=== PATIENT | male | born 1955 | race Caucasian/White ===

== ENCOUNTER 2022-03-12 06:38 | Observation (INO) | payer MEDICARE ==
[2022-03-12 07:03] LABS: #Basophils 0.1 10x3/uL (0.0-0.2); #Eosinphils 0.3 10x3/uL (0.0-0.5); #Monocytes 0.8 10x3/uL (0.0-1.1); #Neutrophils 4.3 10x3/uL (1.5-8.4); %Basophils 0.7 % (0.0-2.0); %Lymphocytes 27.5 % (18.0-47.0); %Monocytes 10.7 % (0.0-10.0); %Neutrophils 56.8 % (40.0-75.0); Hemoglobin 12.4 g/dL (13.5-17.5); Mean Corpuscular HGB CONC 32.5 g/dL (32.0-36.0); Mean Platelet Volume 9.5 fl (7.4-10.4); Platelet Count 267 10x3/uL (150-450); RBC Distribution Width 13.9 % (11.5-14.5); Red Blood Cell (RBC) Count 4.43 10x6/uL (4.32-5.72); White Blood Cell (WBC) Count 7.6 10x3/uL (3.5-10.5)
[2022-03-12] MEDS ORDERED: Aspirin Chewable 81 MG TAB ONE (07:17)
[2022-03-12 07:18] LABS: ALT (SGPT) 11 U/L (8-55); AST (SGOT) 14 U/L (5-34); Albumin 4.2 g/dL (3.4-4.8); Alkaline Phosphatase 33 U/L (40-110); Anion Gap 16 mmol/L (10-20); BUN (Urea Nitrogen) 29 mg/dL (8.4-25.7); Bilirubin, Total 0.3 mg/dL (0.2-1.2); CK (CPK) 88 U/L (30-200); Calc. Creatinine Clearance 0 mL/min (70-130); Calcium 9.4 mg/dL (7.8-10.44); Carbon Dioxide 24 mmol/L (23-31); Chloride 104 mmol/L (98-107); Globulin 3.1 g/dL (2.4-3.5); Glucose 105 mg/dL (80-115); Lipase 45 U/L (8-78); Potassium 4.5 mmol/L (3.5-5.1); Protein, Total 7.3 g/dL (5.8-8.1); Sodium 139 mmol/L (136-145)
[2022-03-12] MEDS ORDERED: Nitroglycerin 2% Ointment 1 INCH/1 GM Packet ONE (07:18)
[2022-03-12] MEDS ORDERED: Bisacodyl 5 MG TAB PO PRN (08:57)
[2022-03-12] MEDS ORDERED: Acetaminophen 325 MG TAB PO PRN (08:57)
[2022-03-12] MEDS ORDERED: Ondansetron ODT 4 MG TAB PO PRN (08:57)
[2022-03-12] MEDS ORDERED: HYDROcodone/Acetaminophen 5/325 mg Tablet PO PRN (08:57)
[2022-03-12] MEDS ORDERED: Ondansetron PF 4 MG/2 ML Vial IVP PRN (08:57)
[2022-03-12] MEDS ORDERED: Senokot S 8.6-50 MG TAB PO PRN (08:57)
[2022-03-12] MEDS ORDERED: Enoxaparin Sodium 30 MG/0.3 ML SYRINGE SC SCH (09:00)
[2022-03-12] MEDS: Famotidine 20 MG TAB PO SCH ×2 (10:00→20:39)
[2022-03-12 10:31] VITALS: BMI 35.2
[2022-03-12 10:35] LABS: Troponin I Less than 0.010 ng/mL (< 0.028)
[2022-03-12 13:12] LABS: Troponin I Less than 0.010 ng/mL (< 0.028)
[2022-03-12] MEDS ORDERED: Dextrose 5% in Water 1,000 ML IV PRN (13:16)
[2022-03-12] MEDS ORDERED: Dextrose 50% Abboject 50 ML SYRINGE SLOW IVP PRN (13:16)
[2022-03-12] MEDS ORDERED: Insulin Regular 300 UNITS/3 ML VIAL SC PRN ×2 (13:16)
[2022-03-12] MEDS ORDERED: Sodium Chloride 0.9% 1,000 ML IV SCH (14:30)
[2022-03-12 19:38] LABS: Hemoglobin A1c 6.1 % (4.0-6.0)
[2022-03-12] MEDS: Metoprolol Tartrate 25 MG TAB PO SCH (20:39)
[2022-03-12] MEDS ORDERED: Communication Order-Pharmacy FS SCH (21:00)
[2022-03-13 04:46] LABS: ALT (SGPT) 9 U/L (8-55); AST (SGOT) 11 U/L (5-34); Albumin 3.8 g/dL (3.4-4.8); Alkaline Phosphatase 30 U/L (40-110); Anion Gap 14 mmol/L (10-20); BUN (Urea Nitrogen) 24 mg/dL (8.4-25.7); Bilirubin, Total 0.3 mg/dL (0.2-1.2); Calc. Creatinine Clearance 91 mL/min (70-130); Calcium 8.8 mg/dL (7.8-10.44); Carbon Dioxide 25 mmol/L (23-31); Cardiac Risk 3.1 (Less than 4.5); Chloride 106 mmol/L (98-107); Cholesterol 122 mg/dl (< 200 Desired); Globulin 2.7 g/dL (2.4-3.5); Glucose 118 mg/dL (80-115); HDL Cholesterol 40 mg/dL (>60 Neg Risk); LDL Cholesterol, Calculated 63 mg/dL; Potassium 4.6 mmol/L (3.5-5.1); Protein, Total 6.5 g/dL (5.8-8.1); Sodium 140 mmol/L (136-145); Triglycerides 93 mg/dL (Less than 150)
[2022-03-13 04:53] LABS: #Eosinphils 0.3 10x3/uL (0.0-0.5); #Monocytes 0.7 10x3/uL (0.0-1.1); #Neutrophils 3.4 10x3/uL (1.5-8.4); %Basophils 0.7 % (0.0-2.0); %Eosinophils 4.3 % (0.0-6.0); %Lymphocytes 25.1 % (18.0-47.0); %Monocytes 11.5 % (0.0-10.0); %Neutrophils 58.2 % (40.0-75.0); Hemoglobin 11.1 g/dL (13.5-17.5); Mean Corpuscular HGB CONC 31.7 g/dL (32.0-36.0); Mean Corpuscular Hemoglobin 27.3 pg (27.0-33.0); Mean Corpuscular Volume 86.2 fl (81.2-95.1); Mean Platelet Volume 9.5 fl (7.4-10.4); Platelet Count 224 10x3/uL (150-450); RBC Distribution Width 13.7 % (11.5-14.5); Red Blood Cell (RBC) Count 4.06 10x6/uL (4.32-5.72); White Blood Cell (WBC) Count 5.8 10x3/uL (3.5-10.5)
[2022-03-13] MEDS ORDERED: Sodium Chloride 0.9% 1,000 ML IV SCH (06:00)
[2022-03-13] MEDS: Famotidine 20 MG TAB PO SCH (08:17)
[2022-03-13] MEDS: Metoprolol Tartrate 25 MG TAB PO SCH (08:18)
[2022-03-13] MEDS ORDERED: Pioglitazone HCl 15 MG TAB PO SCH (09:00)
[2022-03-13] MEDS ORDERED: Aspirin 81 mg Enteric Coated Tablet PO SCH (09:00)
[2022-03-13] MEDS ORDERED: Lisinopril 10 MG TAB PO SCH (09:00)
[2022-03-13] MEDS ORDERED: Hydrochlorothiazide 25 MG TAB PO SCH (09:00)
[2022-03-13] MEDS ORDERED: Iopamidol 300 61% 100 ML VIAL FS ONE (10:21)
[2022-03-13] MEDS ORDERED: Nitroglycerin 50 MG/250 ML BOT 0 ML ONE (12:06)
[2022-03-13] MEDS ORDERED: Heparin 10,000 UNITS/ 10 ML VIAL ONE ×2 (12:06→13:29)
[2022-03-13] MEDS ORDERED: Adenosine 6 MG/2 ML VIAL ONE (12:06)
[2022-03-13] MEDS ORDERED: Lidocaine 1% 20 ML MDV ONE (12:07)
[2022-03-13] MEDS ORDERED: Sodium Chloride 0.9% 1,000 ML ONE (12:07)
[2022-03-13] MEDS ORDERED: Midazolam HCl 5 mg/5 ml Vial ONE (12:27)
[2022-03-13] MEDS ORDERED: Fentanyl 100 MCG/2 ML VIAL ONE (12:28)
[2022-03-13] MEDS ORDERED: Protamine Sulfate 50 MG/5 ML VIAL ONE (13:36)
[2022-03-13] MEDS ORDERED: Acetaminophen/Codeine 30-300mg Tablet PO PRN ×2 (15:27)
[2022-03-13] MEDS ORDERED: Nitroglycerin 0.4 MG TAB (25 Tab Bottle) SL PRN (15:27)
[2022-03-13] MEDS ORDERED: Sodium Chloride 0.9% 200 ML IV PRN (15:27)
[2022-03-13 18:51] VITALS: BP 167/76; TEMP 97.7
[2022-03-13] MEDS ORDERED: Atorvastatin Calcium 20 MG TAB PO SCH (21:00)
[2022-03-14] MEDS ORDERED: Sodium Chloride 0.9% 1,000 ML IV SCH (06:00)
== END 2022-03-13 18:15 | disposition home or self-care (01) ==
LOC: CSHERS 06:38 → CSHTELE 08:40
PROVIDERS: ADMIT Hospitalist; ATTEND Internal Medicine
DX: I25.110 Atherosclerotic heart disease of native coronary artery with unstable angina pectoris (principal); I25.84 Coronary atherosclerosis due to calcified coronary lesion; N17.9 Acute kidney failure, unspecified; E11.9 Type 2 diabetes mellitus without complications; Z20.822 Contact with and (suspected) exposure to COVID-19; I10 Essential (primary) hypertension; I25.2 Old myocardial infarction; E78.5 Hyperlipidemia, unspecified; Z79.82 Long term (current) use of aspirin; Z79.84 Long term (current) use of oral hypoglycemic drugs; Z79.899 Other long term (current) drug therapy; Z87.891 Personal history of nicotine dependence; Z95.1 Presence of aortocoronary bypass graft; Z95.5 Presence of coronary angioplasty implant and graft
CPT/HCPCS: 71045; 80053; 80061; 82550; 82962 ×2; 83036; 83690; 83880; 84484 ×2; 85025; 85347; 93005; 93459; 94760 ×2; 96372; 99285; C1760 ×2; C1769 ×2; C1887; G0378 ×3; U0003; U0005; 36415; 36416; 84443; 99152; 99153; J0153; J1644; J1650; J2250; J2720; J3010; J7050; Q9967